=== PATIENT | female | born 1995 | race Caucasian/White ===

== ENCOUNTER 2018-08-22 02:11 | Emergency (ER) | payer SELFPAY ==
[~2018-08-22] VITALS: Ht 160 cm; Wt 84.1 kg
[2018-08-22 02:17] VITALS: BP 114/78; PULSE 115; TEMP 97.6
== END 2018-08-22 03:00 | disposition home or self-care (01) ==
LOC: COL.ER 02:11
DX: S93.401A Sprain of unspecified ligament of right ankle, initial encounter (principal); Z90.89 Acquired absence of other organs; X50.0XXA Overexertion from strenuous movement or load, initial encounter; Y92.410 Unspecified street and highway as the place of occurrence of the external cause